=== PATIENT | female | born 1980 | race Caucasian/White ===

== ENCOUNTER 2020-05-08 05:24 | Day surgery (SDC) | payer BC ==
[~2020-05-08] VITALS: Ht 172.7 cm; Wt 79.4 kg
[~2020-05-08 05:24] MED LIST: DURICEF500 MG PO; HYDROCODON-ACE1 EAC7 PO
[2020-05-08 05:50] LABS: HEMOGLOBIN 15.3 g/dL (12-16); MCHC 34.8 g/dL (31.0-37.0); RBC 4.63 10x6/uL (4.00-5.40); RDW 12.6 % (11.5-14.5); WBC 9.3 10x3/uL (4.8-10.8)
[2020-05-08 06:13] LABS: HCG SERUM NEGATIVE (NEGATIVE)
[2020-05-08 06:33] VITALS: BP 115/71; Ht 172.7 cm; Wt 79.4 kg
--- NOTE | 2020-05-08 09:19 | NUR ---
0803 IV DC'D. CATHETER TIP INTACT. NO BLEEDING AT SITE. BANDAID APPLIED. 0833 REVIEWED DISCHARGE INSTRUCTIONS WITH PT AND HER WHO VOICE UNDERSTANDING OF INSTRUCTIONS.
--- NOTE | 2020-05-09 07:24 | OP ---
PATIENT NAME: SAMMIE ARELLANO MEDICAL RECORD: [id number] :80 LOCATION:D.OPS ADMISSION DATE: SURGEON: BATSHEVA DIAZ DO DATE OF OPERATION: 05/08/2020 PROCEDURE PERFORMED: Right endoscopic carpal tunnel release. PREOPERATIVE DIAGNOSIS: Right carpal tunnel syndrome. POSTOPERATIVE DIAGNOSIS: Right carpal tunnel syndrome. INDICATIONS: Ms. Arellano is a 40-year-old female who presented to my office yesterday complaining of years of right hand numbness waking her up at night, when she is driving, talking on the phone. All the symptoms of carpal tunnel showed positive carpal tunnel compression test. I informed her that we would like to get a nerve conduction study, but she said that she was running out of insurance at the end of the month and was going out of town. I told her that if that was the case and if she was okay with that we go and do the release due to the fact that she had all of the positive signs and symptoms on exam, but that she may have other issues going on and I would not know how well the numbness would go away or if the feeling would return due to the fact that I did not know how bad the compression was. She was okay with that and was aware of the risks including infection, bleeding, damage to nerves in the area, continued pain and numbness and tingling and she was aware of all that and signed the consent. SURGEON: Batsheva Diaz DO DESCRIPTION OF PROCEDURE: The patient received a block by anesthesia in preoperative area, was taken to the operative suite, laid in the supine position, given a gram of Ancef and the right upper extremity was then prepped and draped in sterile fashion. She was not given any anesthetic because the block worked very well. The right upper extremity was then prepped and draped in sterile fashion. A timeout was performed; everyone was in agreement with the correct side, site, patient and procedure. We then exsanguinated the right upper extremity with the Esmarch and inflated the tourniquet to 250 mmHg and it was up for 12 minutes. I then made an incision centered over the palmaris longus tendon and then made careful dissection down with Ragnell bluntly to the median nerve, there was a large vein on top of the nerve, I pulled this to the ulnar side, freeing up the space there. I then released the fascia from distal to proximal in the forearm and entered the carpal tunnel with the dilators. I then entered with the 2.9 sheath. It was not quite big enough as she did have some soft tissue fall into the sheath. I went with a bigger sheath of 4.0 and then put the scope and had a nice view of the transverse carpal ligament and its fibers. There was no intraligamentous transligamentous nerve seen. I cleaned it off with a rasp and a probe. We then brought in the blade, raised it up and released the transverse carpal ligament as fat herniated down into the carpal tunnel, indicating good release of the transverse carpal ligament. I then removed the equipment and with a bigger end of the Ragnell under direct loupe magnification using a scissors went in and spread any remaining fibers that were left in the transverse carpal ligament and getting a good release. The tourniquet was then let down and the site was injected with 10 mL of 0.25% Marcaine with epinephrine and there is essentially no bleeding, very little. I then closed it with 5-0 Monocryl in inverted interrupted fashion. Steri-Strips was placed on it and then dressed with Adaptic, 4 x 4s, Kerlix, and a Coban lightly wrapped on it. She was then awakened and taken back to her outpatient OPERATIVE REPORT [id number] SAMMIE ARELLANO [place] room, put in a sling and in stable condition. BLOOD LOSS: Minimal. COMPLICATIONS: None. TRANSINT:[id number] Voice Confirmation ID: [id number] DOCUMENT ID: [id number] BATSHEVA DIAZ DO at 0724 CC: [id number] DICTATION DATE: 05/08/20 0835 DENTAL RECEPTIONIST: 05/08/20 1836 [facility] 05/08/20 [place] [id number] [place] [id number]
== END 2020-05-08 08:40 | disposition home or self-care (01) ==
LOC: D.OPS 05:24 → D.PAN 07:00 → D.OPS 07:00 → D.PAN 07:15 → D.OPS 08:40
PROVIDERS: Anesthesiology; ATTEND Orthopaedic Surgery
DX: G56.01 Carpal tunnel syndrome, right upper limb (principal)

== ENCOUNTER → 2021-01-25 11:44 | Outpatient (CLI) | payer MEDICAID ==
[2020-05-08 06:33] VITALS: BMI 26.6
== END | disposition home or self-care (01) ==
LOC: D.US 11:30
PROVIDERS: ATTEND Family Medicine
DX: R92.8 Other abnormal and inconclusive findings on diagnostic imaging of breast (principal)

== ENCOUNTER → 2021-02-17 10:51 | Outpatient (CLI) | payer MEDICAID ==
[2020-05-08 06:33] VITALS: BMI 26.6
== END | disposition home or self-care (01) ==
LOC: D.CT 10:51
PROVIDERS: ATTEND Family Medicine
DX: R31.9 Hematuria, unspecified (principal)

== ENCOUNTER → 2021-03-23 10:58 | Outpatient (CLI) | payer MEDICAID ==
[2020-05-08 06:33] VITALS: BMI 26.6
[2021-03-25 11:12] LABS: HEPATITIS C ANTIBODY <0.1 (0.0-0.9)
== END | disposition home or self-care (01) ==
LOC: D.LAB 10:58
PROVIDERS: ATTEND Internal Medicine Gastroenterology
DX: R74.8 Abnormal levels of other serum enzymes (principal)